=== PATIENT | male | born 1955 | race Caucasian/White ===

== ENCOUNTER 2020-11-10 16:04 | Emergency (ER) | payer OTHER ==
[2020-11-10 16:49] LABS: Basophils % 0.4 % (0-1.3); Lymphocytes % 22.9 % (15.3-44.8); MPV 8.5 fL (7.6-11.3); RBC Red Blood Cell Count 5.14 M/uL (4.33-5.43)
--- NOTE | 2020-11-10 17:12 | RAD REPORT ---
EXAM DESCRIPTION: CT - Head Brain Wo Cont - 11/10/2020 5:04 pm CLINICAL HISTORY: NUMBNESS Headache, drowsiness COMPARISON: Head angio dated 11/10/2020 TECHNIQUE: All CT scans are performed using dose optimization technique as appropriate and may inclu de automated exposure control or mA/KV adjustment according to patient size. FINDINGS: No intracranial hemorrhage, hydrocephalus or extra-axial fluid collection.No areas of brai n edema or evidence of midline shift. The paranasal sinuses and mastoids are clear. The calvarium is intact. IMPRESSION: No acute intracranial abnormality.
[2020-11-10 17:13] LABS: Potassium 3.9 mmol/L (3.5-5.1)
--- NOTE | 2020-11-10 17:14 | RAD REPORT ---
EXAM DESCRIPTION: CT - Head angio - 11/10/2020 5:04 pm CLINICAL HISTORY: NUMBNESS Headache, drowsiness COMPARISON: No comparisons TECHNIQUE: CT angiography of the head was performed with MIPs. All CT scans are performed using dose optimization technique as appropriate and may include automated exposure control or mA/KV adjustment according to patient size. FINDINGS: No evidence of aneurysm is detected. No flow-limiting stenosis or vascular malformation id entified. Antegrade flow is seen in the vertebral arteries. The vertebral arteries are codominant. The visualized dural venous sinuses are patent. IMPRESSION: No significant flow abnormality is detected.
--- NOTE | 2020-11-10 17:16 | RAD REPORT ---
EXAM DESCRIPTION: CT - Neck Angio - 11/10/2020 5:04 pm CLINICAL HISTORY: NUMBNESS Headache, drowsiness COMPARISON: No comparisons TECHNIQUE: CT angiography of the neck vessels was performed with MIPs. All CT scans are performed using dose optimization technique as appropriate and may include automated exposure control or mA/KV adjustment according to patient size. FINDINGS: A left aortic arch is identified with normal three vessel configuration of the great vesse ls. No significant flow abnormality is seen of the common carotid bilaterally. Focal hard plaque is seen in the left carotid bulb resulting in a stenosis of less than 50% based on NASCET criteria. Small focal soft plaque is present involving the right carotid bulb without signific ant narrowing. Normal flow is seen within both vertebral arteries. IMPRESSION: No significant carotid stenosis identified.
--- NOTE | 2020-11-10 17:26 | ER ---
Nurse's Notes [facility] Name: Ray Wallace Age: 65 yrs Sex: Male : 1955 Arrival Date: 11/10/2020 Time: 16:07 Bed 4 Private MD: Diagnosis: Paresthesia of skin Presentation: 11/10 16:13 Chief complaint: Patient states: HTN, numbness left cheek started yesterday around iw 0900, left hand (yesterday at 0900 and went away). Pt forgot to take his HTN meds yesterday. Coronavirus screen: Client denies travel out of the [place] in the last 14 days. At this time, the client does not indicate any symptoms associated with coronavirus-19. Ebola Screen: No symptoms or risks identified at this time. Risk Assessment: Do you want to hurt yourself or someone else? Patient reports no desire to harm self or others. Onset of symptoms was November 09, 2020. 16:13 Method Of Arrival: Ambulatory iw 16:13 Acuity: LADAN 3 iw 16:17 Initial Sepsis Screen: Does the patient meet any 2 criteria? No. Patient's initial iw sepsis screen is negative. Does the patient have a suspected source of infection? No. Patient's initial sepsis screen is negative. Triage Assessment: 16:32 General: Appears in no apparent distress. Behavior is calm, cooperative, appropriate ll1 for age. Pain: Denies pain. Neuro: Level of Consciousness is awake, alert, obeys commands, Oriented to person, place, time, situation, Appropriate for age Saddle Stitch Operator are equal bilaterally Moves all extremities. Full function Gait is steady, Speech is normal, Facial symmetry appears normal, Reports paresthesias in L face. Cardiovascular: Reports high blood pressure, forgot to take BP pill yesterday. Heart tones S1 S2 Capillary refill < 3 seconds Clubbing of nail beds is absent JVD is absent Patient's skin is warm and dry. Respiratory: No deficits noted. Historical: - Allergies: 16:16 No Known Allergies; iw - Home Meds: 16:17 atorvastatin 40 mg oral tab 1 tab once daily [Active]; losartan 100 mg oral tab 1 tab iw once daily [Active]; - PMHx: 16:16 Hypertension; High Cholesterol; iw - PSHx: 16:16 R AKA; iw 16:16 Cholecystectomy; Knee surgery; iw - Social history:: Smoking status: . - Family history:: not pertinent. - Hospitalizations: : No recent hospitalization is reported. Screenin:31 Abuse screen: Denies threats or abuse. Nutritional screening: No deficits noted. ll1 Tuberculosis screening: No symptoms or risk factors identified. Fall Risk None identified. Total East Fall Scale indicates No Risk (0-24 pts). Assessment: 16:26 Reassessment: Dr Goldsmith at the bedside. sv 16:47 Reassessment: Pt taken to CT via wheelchair. ph Vital Signs: 16:16 BP 152 / 84; Pulse 74; Resp 16; Temp 98.9(TE); Pulse Ox 98% ; Weight 99.34 kg; Height 6 iw ft. 0 in. (182.88 cm); Pain 0/10; 16:16 Body Mass Index 29.70 (99.34 kg, 182.88 cm) iw ED Course: 16:07 Patient arrived in ED. rg4 16:15 Triage completed. iw 16:16 Arm band placed on. iw 16:18 Gokul Goldsmith MD is Attending Physician. rn 16:31 Jose Denise RN is Primary Nurse. ll1 16:35 Patient has correct armband on for positive identification. Bed in low position. Call ll1 light in reach. Side rails up X 1. Pulse ox on. NIBP on. 16:40 Inserted saline lock: 20 gauge in left antecubital area, using aseptic technique. Blood sv collected. Flushed left antecubital with 5 ml normal saline. 17:04 CT Head Brain wo Cont In Process Unspecified. EDMS 17:04 CT Head Angio In Process Unspecified. EDMS 17:05 CT Neck Angio In Process Unspecified. EDMS 17:25 Blake Boateng MD is Referral Physician. rn 17:38 EKG done, by ED staff, reviewed by Gokul Goldsmith MD. dh3 17:50 No provider procedures requiring assistance completed. IV discontinued, intact, sv bleeding controlled, No redness/swelling at site. Pressure dressing applied. Administered Medications: No medications were administered Outcome: 17:25 Discharge ordered by MD. rn 17:50 Discharged to home ambulatory, with family. sv 17:50 Condition: stable 17:50 Discharge instructions given to patient, family, Instructed on discharge instructions, follow up and referral plans. Demonstrated understanding of instructions, follow-up care. 17:51 Patient left the ED. sv Signatures: Dispatcher [employer] EDMS Judith Alvarado RN RN Candy Mosquera RN RN Gokul Caba MD MD rn Hall, Patricia, RN RN ph Garcia, Rebeca 4 Mike, Layla 3 Jose Denise RN RN ll1 Corrections: (The following items were deleted from the chart) 16:18 16:13 Chief complaint: Patient states: HTN, numbness left cheek started yesterday iw around 0900, left hand (yesterday at 0900 and went away). iw 16:18 16:16 99.34 kg; Height 6 ft. 0 in.; BMI: 29.7; Pain 0/10; iw iw 16:18 16:16 Pulse 74bpm; Resp 16bpm; Pulse Ox 98%; Temp 98.9F Temporal; 99.34 kg; Height 6 iw ft. 0 in.; BMI: 29.7; Pain 0/10; iw
--- NOTE | 2020-11-10 17:26 | EDPHYS ---
Physician Documentation [facility] Name: Ray Wallace Age: 65 yrs Sex: Male : 1955 Arrival Date: 11/10/2020 Time: 16:07 Bed 4 Private MD: ED Physician Gokul Goldsmith HPI: 11/10 16:31 This 65 yrs old Male presents to ER via Ambulatory with complaints of rn Numbness, High Blood Pressure. 16:31 The patient's problem is reported as paresthesias, in left side of face. Onset: The rn symptoms/episode began/occurred yesterday. Duration: This was a single incident, The episode is continuous. The symptoms are alleviated by nothing. The symptoms are aggravated by nothing. Associated signs and symptoms: Pertinent positives: tingling, Pertinent negatives: abdominal pain, ataxia, blurred vision, chest pain, headache, palpitations, seizure, shortness of breath, vomiting, weakness. Severity of symptoms: At their worst the symptoms were very mild in the emergency department the symptoms have improved. The patient has not experienced similar symptoms in the past. The patient has not recently seen a physician. Reports began with tingling to left face and left hand yesterday, no weakness, no speech or vision problem. Reports missed HTN medication yesterday, symptoms improving, left hand numbness gone, left facial numbness also nearly gone. No head injury or trauma recently. No vision changes. Denies trouble eating or liquid spilling from mouth today. . Historical: - Allergies: 16:16 No Known Allergies; iw - Home Meds: 16:17 atorvastatin 40 mg oral tab 1 tab once daily [Active]; losartan 100 mg oral tab 1 tab iw once daily [Active]; - PMHx: 16:16 Hypertension; High Cholesterol; iw - PSHx: 16:16 R AKA; iw 16:16 Cholecystectomy; Knee surgery; iw - Social history:: Smoking status: . - Family history:: not pertinent. - Hospitalizations: : No recent hospitalization is reported. ROS: 16:31 Constitutional: Negative for fever, chills, and weight loss, Eyes: Negative for injury, rn pain, redness, and discharge, Neck: Negative for injury, pain, and swelling, Cardiovascular: Negative for chest pain, palpitations, and edema, Respiratory: Negative for shortness of breath, cough, wheezing, and pleuritic chest pain, Abdomen/GI: Negative for abdominal pain, nausea, vomiting, diarrhea, and constipation, Back: Negative for injury and pain, MS/Extremity: Negative for injury and deformity, Skin: Negative for injury, rash, and discoloration, Neuro: Negative for headache, weakness, and seizure. Exam: 16:31 Constitutional: This is a well developed, well nourished patient who is awake, alert, rn and in no acute distress. Head/Face: Normocephalic, atraumatic. Eyes: Pupils equal round and reactive to light, extra-ocular motions intact. Lids and lashes normal. Conjunctiva and sclera are non-icteric and not injected. Cornea within normal limits. Periorbital areas with no swelling, redness, or edema. Cardiovascular: Regular rate and rhythm. No pulse deficits. Respiratory: No increased work of breathing, no retractions or nasal flaring. Abdomen/GI: soft, non-tender Skin: Warm, dry MS/ Extremity: Pulses equal, no cyanosis. Neuro: Awake and alert, GCS 15, oriented to person, place, time, and situation. Cranial nerves II-XII grossly intact, very subtle left lower facial weakness (patient attributes spacers causing limitation of smile). Motor strength 5/5 in all extremities. Sensory grossly intact. Cerebellar exam normal. Normal gait. Vital Signs: 16:16 BP 152 / 84; Pulse 74; Resp 16; Temp 98.9(TE); Pulse Ox 98% ; Weight 99.34 kg; Height 6 iw ft. 0 in. (182.88 cm); Pain 0/10; 16:16 Body Mass Index 29.70 (99.34 kg, 182.88 cm) iw MDM: 16:18 Patient medically screened. rn 17:23 Differential diagnosis: CVA, TIA, metabolic disorder, neuropathy, bells palsy. Data rn reviewed: vital signs, nurses notes, lab test result(s), EKG, radiologic studies, CT scan, and as a result, I will discharge patient. Counseling: I had a detailed discussion with the patient and/or guardian regarding: the historical points, exam findings, and any diagnostic results supporting the discharge/admit diagnosis, lab results, radiology results, the need for outpatient follow up, to return to the emergency department if symptoms worsen or persist or if there are any questions or concerns that arise at home. Special discussion: I discussed with the patient/guardian in detail that at this point there is no indication for admission to the hospital. It is understood, however, that if the symptoms persist or worsen the patient needs to return immediately for re-evaluation. Based on the history and exam findings, there is no indication for further emergent testing or inpatient evaluation. I discussed with the patient/guardian the need to see the neurologist for further evaluation of the symptoms. ED course: CT head neg, no acute findings of ct angio head/neck, already taking anti-hypertensives and cholesterol meds, also taking baby aspirin, will dc home with instructions to f/u with neurology and pcp. Return precautions given and understood. . 11/10 16:31 Order name: CBC with Diff; Complete Time: 17:16 rn 11/10 16:31 Order name: Basic Metabolic Panel; Complete Time: 17:16 rn 11/10 16:31 Order name: CT Head Brain wo Cont; Complete Time: 17:16 rn 11/10 16:31 Order name: CT Head Angio; Complete Time: 17:16 rn 11/10 16:31 Order name: CT Neck Angio; Complete Time: 17:16 rn 11/10 16:31 Order name: EKG; Complete Time: 16:32 rn 11/10 16:31 Order name: IV Start; Complete Time: 16:36 rn 11/10 16:31 Order name: EKG - Nurse/Tech; Complete Time: 17:40 rn Administered Medications: No medications were administered Disposition: 11/10/20 17:25 Discharged to Home. Impression: Paresthesia of skin. - Condition is Stable. - Discharge Instructions: Paresthesia. - Medication Reconciliation Form, Thank You Letter, Antibiotic Education, Prescription Opioid Use form. - Follow up: Blake Boateng MD; When: As needed; Reason: Recheck today's complaints, Re-evaluation by your physician. - Problem is new. - Symptoms have improved. Signatures: Dispatcher [employer] EDMS Judith Alvarado, RN Candy Delgado RN RN iw Nieto, Roman, MD MD rn Lewis, Jose RN RN ll1 Corrections: (The following items were deleted from the chart) 16:35 16:31 Reports began with tingling to left face and left hand yesterday, no weakness, no rn speech or vision problem. Reports missed HTN medication yesterday, symptoms improving, left hand numbness gone, left facial numbness also nearly gone. No head injury or trauma recently. No vision changes. . rn 17:51 17:25 11/10/2020 17:25 Discharged to Home. Impression: Paresthesia of skin. Condition sv is Stable. Forms are Medication Reconciliation Form, Thank You Letter, Antibiotic Education, Prescription Opioid Use. Follow up: Blake Boateng; When: As needed; Reason: Recheck today's complaints, Re-evaluation by your physician. Problem is new. Symptoms have improved. rn
--- NOTE | 2020-11-11 07:35 | EKG ---
Test Date: 2020-11-10 Test Time: 17:36:23 [place] Worker: JONO MEASUREMENT RESULTS: Intervals: Rate: 72 MA: 158 QRSD: 92 QT: 374 QTc: 409 [place]: P: 52 MA: 158 QRS: -22 T: 56 INTERPRETIVE STATEMENTS: Normal sinus rhythm Septal infarct, age undetermined Abnormal ECG Compared to ECG 05/06/2007 07:36:41 Myocardial infarct finding now present Electronically Signed On 11-11-20 07:34:17 DISPENSING LEAD by Dante Nelson
[2020-11-12 13:30] VITALS: BP 152/84; TEMP 98.9; O2SAT 98
== END 2020-11-10 17:51 | disposition home or self-care (01) ==
LOC: ER 16:04
DX: R20.2 Paresthesia of skin (principal); I10 Essential (primary) hypertension; E78.00 Pure hypercholesterolemia, unspecified
CPT/HCPCS: 93005; 85025; 80048; 36415; 82565; 70450; 70496; 70498; 99284; Q9967